=== PATIENT | male | born 1950 | race Caucasian/White ===

== ENCOUNTER 2024-10-14 07:15 | Day surgery (SDC) | payer MEDICARE ==
[~2024-10-14] VITALS: Ht 188 cm; Wt 103.6 kg
[~2024-10-14 07:15] MED LIST: Triamcinolone Inj Susp 40 MG / ML 1ML Vial ONE
[2024-10-14] MEDS ORDERED: Midazolam HCl 1MG / ML 2ML Vial ONE (08:08)
[2024-10-14] MEDS ORDERED: Tetracaine HCl 0.5% Opth Soln 15 ml XX ONE (08:12)
[2024-10-14] MEDS ORDERED: Povidone-Iodine 450 DROP/30 ML Solution XX ONE (08:12)
[2024-10-14] MEDS ORDERED: Triamcinolone Acetonide/Pf 40 MG/ML Susp (1ML) XX ONE (08:21)
[2024-10-14] MEDS ORDERED: Moxifloxacin HCL 0.5 MG/0.1 ML 0.4MLSYR XX ONE (08:21)
[2024-10-14] MEDS ORDERED: BSS PLUS/EPINEPHRINE IRRIGATION SOLUTION 500 ML IR ONE (08:21)
[2024-10-14] MEDS ORDERED: Lidocaine HCl/Pf 1% 5 ML VIAL XX ONE (08:21)
[2024-10-15] MEDS ORDERED: Balanced Salt Epinephrine Irrigation Solution 500 mL IR SCH (06:00)
[2024-10-15] MEDS ORDERED: Povidone-Iodine 450 DROP/30 ML Solution LEFTEYE SCH (06:00)
[2024-10-15] MEDS ORDERED: Lidocaine HCl/Pf 1% 5 ML VIAL XX SCH (06:00)
[2024-10-15] MEDS ORDERED: Moxifloxacin HCL 0.5 MG/0.1 ML 0.4MLSYR LEFTEYE SCH (06:00)
[2024-10-15] MEDS ORDERED: Triamcinolone Inj Susp 40 MG / ML 1ML Vial INJ SCH (06:00)
[2024-10-15] MEDS ORDERED: PHENYLEPHRINE\\TROPICAMIDE\\TETRACAINE OPHTHALMIC DILATING SOLN LEFTEYE PRN (06:00)
== END 2024-10-14 08:53 | disposition home or self-care (01) ==
LOC: ORSCSDS 07:15
PROVIDERS: Ophthalmology
PROC: 08RK3JZ Replacement of Left Lens with Synthetic Substitute, Percutaneous Approach (ICD-10-PCS; principal; 2024-10-14 08:30)
DX: H25.812 Combined forms of age-related cataract, left eye (principal)
CPT/HCPCS: J2003; J2250; J3300; J3301; V2632